=== PATIENT | female | born 1950 | race Caucasian/White ===

== ENCOUNTER 2020-02-08 22:52 | Emergency (ER) | payer BC ==
[2020-02-08] MEDS ORDERED: Acetaminophen/HYDROcodone 325-5 MG Tab PO ONE (23:32)
--- NOTE | 2020-02-08 23:37 | EDM.PDOC ---
ED HPI GENERAL MEDICAL PROBLEM - General Chief Complaint: Lower Extremity Injury/Pain Stated Complaint: ANKLE PAIN /LAC Time Seen by Provider: 02/08/20 23:03 Source of Information: Reports: Patient, Provider ([facility]level at [facility]) History Limitations: Reports: No Limitations - History of Present Illness INITIAL COMMENTS - FREE TEXT/NARRATIVE: Mrs. Alvarado is a very pleasant 69-year-old woman who states that she stepped on an aluminum ladder around 17:00 this evening, when it broke, causing her left foot to fall straight down. She suffered a laceration to the posterior aspect of her left ankle. She was seen at the [facility] in [place], where the chip fracture may have been seen. The patient was given IV Zosyn, then her IV was removed. She was also given 2 tablets of Armstrong, and a tetanus vaccination before being directed here, as the physician at the clinic was not comfortable and suturing the laceration. Other than the left ankle injury, the patient states that she is uninjured. Here in the ED, the patient is found to be hemodynamically stable, afebrile, saturating 96% on room air. Other than rickyight's left ankle injury, the patient denies having a recent fever, chills, sore throat, ear pain, nasal or sinus congestion, cough, dyspnea, chest pain, palpitations, nausea, vomiting, constipation, diarrhea, abdominal pain, urinary symptoms, recent weight gain or weight loss, recent bloody bowel movements or black bowel movements, recent joint aches, headaches, or rashes. The patient's PCP is Lily Dickey NP, at the [facility] in [place]. Left Lower Ankle Pain Score (Numeric/FACES): 8 - Related Data Allergies Allergy/AdvReac Type Severity Reaction Status Date / Time No Known Allergies Allergy Verified 02/08/20 23:02 Home Meds: Home Meds cephALEXin [Keflex] 1 tab PO Q6H #28 capsule 02/09/20 [Rx] Past Medical History Cardiovascular History: Reports: High Cholesterol, Hypertension Genitourinary History: Reports: Renal Calculus, Urinary Incontinence (stress incontinence) Endocrine/Metabolic History: Reports: Diabetes, Type II, Hypothyroidism - Past Surgical History GI Surgical History: Reports: Appendectomy, Cholecystectomy (1969) Female Surgical History: Reports: Lithotripsy/ESWL Social & Family History - Tobacco Use Smoking Status *Q: Never Smoker - Alcohol Use Alcohol Use History: Yes Alcohol Use Frequency: Rarely - Recreational Drug Use Recreational Drug Use: No - Living Situation & Occupation Living situation: Reports: , with Spouse Occupation: Employed ([employer] in [place]) Review of Systems - Review of Systems Review Of Systems: Comprehensive ROS is negative, except as noted in HPI. ED EXAM, GENERAL - Physical Exam Exam: See Below Exam Limited By: No Limitations General Appearance: Alert, WD/WN, No Apparent Distress Extremities: Other (There is an approximately 7.5 cm irregular transverse laceration across the posterior aspect of the patient's left ankle. Minimal bleeding at present. A large piece of clot material was present in the inferior aspect of the wound, which was removed by me without difficulty. No obvious tendon injury. Neurovascular status of the left lower extremity is intact.) Course - Vital Signs Last Recorded V/S: Last Vital Signs Temp 36.2 C 02/08/20 23:02 Pulse 93 02/08/20 23:02 Resp 17 02/08/20 23:02 BP 137/70 02/08/20 23:02 Pulse Ox 96 02/08/20 23:02 - Orders/Labs/Meds Orders: Active Orders 24 hr Category Date Time Status Ankle Min 3V Lt [CR] Stat Exams 02/08/20 23:32 Taken Meds: Medications Discontinued Medications Generic Name Dose Route Start Last Admin Trade Name Herberthq PRN Reason Stop Dose Admin Hydrocodone Bitart/Acetaminophen 2 tab 02/08/20 23:32 02/08/20 23:39 Armstrong 325-5 Mg PO 02/08/20 23:33 2 tab ONETIME ONE Administration Bupivacaine HCl 10 ml 02/09/20 00:43 02/09/20 00:50 Sensorcaine-Mpf 0.5% INJECT 02/09/20 00:44 10 ml ONETIME ONE Administration Lidocaine/Epinephrine 20 ml 02/09/20 00:43 02/09/20 00:50 Xylocaine 1% With Epinephrine 1:100,000 INJECT 02/09/20 00:44 20 ml ONETIME ONE Administration - Re-Assessments/Exams Free Text/Narrative Re-Assessment/Exam: 02/08/20 23:34 As above, the patient fell through a broken ladder around 6.5 hours ago, lacerating the posterior aspect of her left ankle, and, according to a midlevel at the [facility] that I spoke to 2 or 3 hours ago, also possibly fracturing it. I removed a sizable piece of cloth material from the laceration. Since x-rays from [place] were not pushed here, I have ordered x- rays of the ankle to evaluate. In the meantime, the patient will be given 2 tablets of Armstrong. As above, she was given IV Zosyn at [place]. 02/09/20 00:03 4-view radiographs of the left ankle reviewed. There is an opacity noted off the posterior lateral tibia that is unclear if it is due to a chip fracture versus a foreign body. No other obvious fracture or dislocation identified. I have asked [facility] to interpret the radiographs. 02/09/20 00:20 4-view radiographs of the left ankle are read by the read as: Soft tissue laceration about the posterior lateral ankle with associated subcutaneous emphysema. Linear density about the lateral malleolus on the AP view that measures up to 0.9 cm could represent a foreign body. No acute fracture. 02/09/20 01:05 I anesthetized the edge of the wound with a 50-50 admixture of bupivacaine 0.5% without epinephrine and lidocaine 1% with epinephrine. I then began to clean the wound, noticing what appeared to be a complete Achilles tendon laceration. I asked the patient to plantarflex, which she was unable to do, confirming the diagnosis. I therefore stopped exploring the wound and approximated the edges with 11 husam, which the patient tolerated well. Unfortunately, we do not have orthopedic surgery police officer crime prevention tonight. The patient does not have a preference as to transfer to [facility] versus [facility]. 02/09/20 01:06 Notified that [facility] is on diversion. 02/09/20 01:23 Case discussed with Devora at [facility] Call at 01:07. She notified me that [facility] is also on diversion. She spoke with the Orthopedic Surgeon Dr. Echevarria, who instructed her to refer the patient to the Air Operations Manager on- call. Case then discussed with Dr. Martinez, Air Operations Manager on-call at [facility], at 01:16. He felt that the repair can be managed as an outpatient. He recommended that we dress the wound with Adaptic or Xeroform, then placed the patient into a well-padded posterior mold splint with the foot in plantarflexion. The patient is to be issued crutches for nonweightbearing. I will prescribe Keflex. She is to remain NPO. The patient can call his office in the morning, but they will also attempt to call her, as well. 02/09/20 01:45 A Xeroform dressing was applied by Haley MATOS, then I applied a posterior mold splint with the foot in plantarflexion. The patient tolerated the procedure well. She states that she has 2 sets of crutches at home, however, I will have Haley MATOS go over how to properly fit and use them. I have ordered a dose of Keflex, and will submit a prescription for a 7-day course. The patient understands that she is to remain NPO, although she is concerned that her blood sugar may drop tomorrow. I explained that she should discuss that with Dr. Martinez's staff in the morning, and that if she needs to take something, it is probably best if she drinks something, like a Sprite, as opposed to eating something. I have pushed the x-ray images to Aron Vera. Departure - Departure Time of Disposition: 01:47 Disposition: Home, Self-Care 01 Condition: Good Clinical Impression: Laceration of left Achilles tendon - Discharge Information *PRESCRIPTION DRUG MONITORING PROGRAM REVIEWED*: Not Applicable *COPY OF PRESCRIPTION DRUG MONITORING REPORT IN PATIENT SHONA: Not Applicable Referrals: Reid Martinez DPM [Ordering Only Provider] - PCP,Not In Area [Primary Care Provider] - Forms: ED Department Discharge Additional Instructions: You were seen in the emergency room after a ladder broke under you, cutting the back of your left ankle. Work-up in the ER included x-rays of your left ankle, which showed that you have not broken any bones, but you may still have a piece of material in the wound. On examination, you were found to have a complete laceration of your Achilles tendon. This will need to be surgically repaired. Your wound has been closed with 11 husam, dressed, and your left leg placed into a splint. The splint cannot get wet. You cannot bear any weight on the splint. Use crutches or a knee roller to get around. You have been started on the antibiotic Keflex, and a prescription for Keflex has been sent to the [facility] located at [address] [place] [address] in [place]. Take 1 tablet of Keflex every 6 hours, as prescribed. Finish the entire prescription unless told otherwise by Dr. Martinez. Do not eat anything unless permitted to do so by Dr. Martinez's office. Contact the office of the Air Operations Manager Dr. Reid Martinez this morning, in order to arrange to be seen as soon as possible. If any other problems, please do not hesitate to return to the ER. Sepsis Event Note (ED) - Evaluation Sepsis Screening Result: No Definite Risk - Focused Exam Vital Signs: Vital Signs Temp Pulse Resp BP Pulse Ox 02/08/20 23:02 36.2 C 93 17 137/70 96 - My Orders Last 24 Hours: My Active Orders 02/08/20 23:32 Ankle Min 3V Lt [CR] Stat - Assessment/Plan Last 24 Hours: My Active Orders 02/08/20 23:32 Ankle Min 3V Lt [CR] Stat
[2020-02-09] MEDS ORDERED: Bupivacaine 0.5% 10 ML SDV INJECT ONE (00:43)
[2020-02-09] MEDS ORDERED: Lidocaine 1% with EPINEPHrine 1:100,000 20 ML MDV INJECT ONE (00:43)
[2020-02-09] MEDS ORDERED: Cephalexin 500 MG Cap PO STA (01:45)
--- NOTE | 2020-02-09 07:02 | CR ---
Left ankle: 4 views of the left ankle were obtained. Comparison: No previous ankle study is available. Findings: Soft tissue injury is identified posteriorly with soft tissue air. Linear density is seen in an area of soft tissue swelling lateral to the lateral malleolus measuring up to 9 mm, difficult to exclude foreign body. Small plantar spur is present. Degenerative change is noted within the midfoot. No acute fracture or other abnormality is appreciated. Impression: 1. Soft tissue injury with soft tissue air. 2. Linear density off the lateral ankle and difficult to exclude foreign body. This could also be outside the patient. 3. No acute bony abnormality is appreciated. Diagnostic code #3 This report was dictated in MDT I agree with preliminary report from [facility], finalized on 02/09/20, 1:17 AM Central Daylight Time
== END 2020-02-09 02:19 | disposition home or self-care (01) ==
LOC: JD.ED 22:52
DX: S86.022A Laceration of left Achilles tendon, initial encounter (principal); I10 Essential (primary) hypertension; E11.9 Type 2 diabetes mellitus without complications; W11.XXXA Fall on and from ladder, initial encounter
CPT/HCPCS: 12002; 73610; 99283; A9270; J3490; 12032; 29515